=== PATIENT | female | born 1930 | race Caucasian/White ===

== ENCOUNTER 2016-07-18 13:37 | Emergency (ER) | payer MEDICARE, OTHER ==
[~2016-07-18] VITALS: Ht 157.5 cm; Wt 74.9 kg
[~2016-07-18 13:37] MED LIST: ASCO100089 PO; CALC-190 PO; CHOL200047 PO; CRAN1CAP6 PO; DEXT1DRO8 BOTH_EYES; FLUT16SP NS; GLUC1TAB20 PO; LIP40 PO; LOSA100T29 PO; LOSA100T3 PO; MECL12.5 PO; OMEP40CA36 PO; POLY17PO6 PO; PRAM0.252 PO; VITA400C64 PO
[2016-07-18 13:44] VITALS: BP 179/95; PULSE 74; RESP 19; O2SAT 100
[2016-07-18] MEDS ORDERED: ACET-171 PO (13:54)
[2016-07-18] MEDS ORDERED: MULT1CAP33 PO (13:54)
[2016-07-18] MEDS ORDERED: Ondansetron 2 mg/mL 2 mL Inj IV PRN (14:00)
[2016-07-18 14:33] LABS: APPEARANCE,URINE HAZY (CLEAR,HAZY); COLOR,URINE YELLOW (YELLOW); OCCULT BLOOD,URINE TRACE (NEGATIVE); UROBILINOGEN,URINE NORMAL (NORMAL)
--- NOTE | 2016-07-18 14:43 | DRSVH ---
PROCEDURE: X-RAY CHEST ONE VIEW, PORTABLE ([id number]) INDICATIONS: dyspnea TECHNIQUE: One view of the chest was acquired. COMPARISON: None. FINDINGS: Surgical changes and devices: automatic coin machine mechanic leads are seen over the chest. Lungs and pleura: No pleural effusions or pneumothorax. Lungs are clear. Mediastinum: Mediastinal contours appear normal. Heart size is normal. Bones and chest wall: No suspicious bony lesions. Overlying soft tissues appear unremarkable. IMPRESSION: Acute disease is not seen in this semiupright portable chest. Dictated by: Miky Church M.D. on 07/18/2016 at 14:41 Approved by: Miky Church M.D. on 07/18/2016 at 14:42
--- NOTE | 2016-07-18 14:43 | DRSVH ---
PROCEDURE: CT BRAIN WITHOUT CONTRAST ([id number]) INDICATIONS: headache TECHNIQUE: Noncontrast 4.5 mm thick angled axial sections acquired from the foramen magnum to the vertex, with c oronal reformats. COMPARISON: [facility], CT, CT BRAIN WO CON, 01/27/2016, 14:14. FINDINGS: Image quality: Excellent. CSF spaces: Basal cisterns are patent. No extra-axial fluid collections. The ventricles are symmet keila in size and shape. Brain: No intracranial bleeds or masses. There is cerebral volume loss for age, with resultant vent ricular and sulcal prominence. There are periventricular and deep white matter chronic small vessel ischemic changes. There is intracranial internal carotid artery atherosclerosis. Skull and face: Calvarium and visualized facial bones appear intact, without suspicious lesions. Ab normal amount of soft tissue in the posterior right pituitary is unchanged since previous CT scan. Sinuses: Visualized sinuses and mastoids are clear. IMPRESSION: 1. No acute intracranial abnormality. 2. Enlarged pituitary, unchanged in appearance with prominent soft tissue posterior and lateral on th e right side compared to earlier head CT's. Dictated by: Miky Church M.D. on 07/18/2016 at 14:37 Approved by: Miky Church M.D. on 07/18/2016 at 14:41
[2016-07-18 15:03] LABS: BASOPHILS % (AUTO) 0.5 % (0-3); EOSINOPHILS % (AUTO) 1.5 % (0-5); MONOCYTES % (AUTO) 10.8 % (4-12); Mean Corpuscular Volume 86.2 fL (81-100); NEUTROPHILS % (AUTO) 62.6 % (40-74); Platelet Count 247 bil/L (150-400)
--- NOTE | 2016-07-18 15:19 | ED.REPORT ---
HPI-Headache Date of Service Jul 18, 2016 ED Provider: Tyler Gruber MD An 85 year old female with a history of hypertension, GERD, anxiety and skin cancer presents to the ED via EMS complaining of a dizziness than began earlier this afternoon. Associated symptoms include SOB, headache and photophobia. She reports that her headache and dizziness have been constant since onset. Patient recently had a dental infection following a root canal one week ago and has been taking doxycycline. Patient also reports experiencing nausea, headaches, diarrhea and swelling in her neck earlier this week. She denies any chest pain. Nursing Notes Stated Complaint: DIZZINESS Chief Complaint: Headache Nursing Notes Reviewed: Yes Allergies: Coded Allergies: ibandronate sodium (Verified Allergy, Severe, ESOPHAGEAL PAIN, 07/18/16) meperidine (Verified Allergy, Severe, N/V, JHA, TINNITUS, 07/18/16) morphine (Verified Allergy, Severe, vomiting-severe, JHA, 07/18/16) TAPE (Verified Allergy, Mild, Rash,Itching,, 07/18/16) NSAIDS (Non-Steroidal Anti-Inflamma (Verified Adverse Reaction, Intermediate, GERD, 07/18/16) codeine (Verified Adverse Reaction, Intermediate, Upset stomach, 07/18/16) Scheduled Ascorbic Acid (Vitamin C) 1,000 Mg Tab.chew 1,000 MG PO DAILY Atorvastatin (Lipitor) 40 Mg Tablet 40 MG PO HS Calcium Carb&Cit/Mag12/Vit D3 (Calcium 500 mg Tablet) 1 Each Tablet 1 EACH PO DAILY Cholecalciferol (Vitamin D3) (Vitamin D3) 2,000 Unit Capsule 2,000 UNIT PO DAILY Ciprofloxacin (Ciprofloxacin) 500 Mg Tablet 500 MG PO BID Cranberry Conc/Ascorbic Acid (Cranberry Plus Vitamin C Sftgl) 1 Each Capsule 1 EACH PO DAILY Dextran 70/Hypromellose/Pf (Artificial Tears Drops) 1 Each Droperette 1 DROP BOTH_EYES HS Fluticasone Propionate (Fluticasone Propionate Nasal) 16 Gm [place].susp 2 SPRAY NS DAILY Gluc Souza/Chondro Souza A/Vit C/Mn (Glucosamine Chondroitin Tab) 1 Each Tablet 1 EACH PO DAILY Losartan Potassium (Losartan Potassium) 100 Mg Tablet 100 MG PO DAILY Losartan Potassium (Cozaar) 100 Mg Tablet 100 MG PO DAILY Multivitamin (Multivitamins) 1 Each Capsule 1 EACH PO DAILY Omeprazole (Omeprazole) 40 Mg Capsule.dr 40 MG PO DAILY Polyethylene Glycol 3350 (Miralax) 17 Gm Powd.pack 17 GM PO 2Xweekly Pramipexole Dihydrochloride (Mirapex) 0.25 Mg Tablet 0.25 MG PO HS Vitamin E Mixed (Vitamin E) 400 Unit Capsule 400 UNIT PO DAILY Scheduled PRN Acetaminophen (Acetaminophen) 500 Mg Tablet 1,000 MG PO Q6H PRN PRN For Pain Meclizine (Antivert) 12.5 Mg Tablet 12.5 MG PO TID PRN PRN For Dizziness General Time Seen by MD: 15:13 Chief Complaint Other (Dizziness) Hx Obtained From: Patient Arrived By: Ambulance Sudden in Onset?: No Onset Occurred: 1 - 4 hours ago Symptom Duration: Since onset Location: : Generalized Quality: Aching Radiation: : Does not radiate Severity: Current: Mild Severity: Maximum: Moderate Associated with: Reports: Weakness Pertinent Negative: Pt denies other symptoms Recent Healthcare: No recent doctor visit, No recent hospitalization Risk-Headache )( SAH Risk Stratification RF Statements: Risk factors reviewed )( IC Mass Risk Stratification RF Statements: Risk factors reviewed Past Medical History Past Medical History Irregular heartbeat Hemorrhoids Skin cancer Chronic back pain from injury Musculoskeletal trauma Osteoarthritis Anxiety Restless legs syndrome Reports: Cancer, GERD, Hypertension Past Surgical History L radical mastectomy Pituitary gland tumor surgery Partial knee replacement Mar 25, 2014 Esophogeal tumor removal Hernia repair Vericose vein removed Reports: Appendectomy, Cataract surgery, Cholecystectomy, Hysterectomy, Tonsillectomy Smoking History Former Smoker Social History Alcohol Use: Denies alcohol use Drug Use: Denies drug use Other Social History: , Local resident Ambulatory Status Independent Review of Systems Constitutional: Denies: Chills, Fever GI: Reports: Diarrhea, Nausea Neurologic: Reports: Dizziness, Headache, Weakness, Denies: Change LOC Complete sys rev & neg: except as marked. Respiratory: Reports: Shortness of breath Cardiovascular: Denies: Chest pain Physical Exam Initial Vital Signs Vital Signs (First) Date Time Temp Pulse Resp B/P Pulse Ox O2 Delivery O2 Flow Rate FiO2 07/18/16 13:44 36.7 74 19 179/95 100 Room Air Initial VS: Reviewed Extremities: Vascular intact, Neuro intact, No swelling, No tenderness Skin: Warm, Dry, No cyanosis Psychiatric: Mood/affect normal, Behavior normal, Normal thought content General/Constitutional: Awake, Alert Head / Eyes: Atraumatic, Normocephalic, PERRL Neck: Atraumatic, Supple Neurologic: Oriented X3, Speech NL, No motor deficits, No sensory deficits, CN II - XII intact Abdomen: Atraumatic, Soft, Non-tender, No guarding, No rebound Interpretation & Diagnostics Lab Results Interpretation Result Diagram: 07/18/16 1450 07/18/16 1450 Test 07/18/16 14:07 07/18/16 14:50 Urine Color Yellow (YELLOW) Urine Appearance Hazy (CLEAR,HAZY) Urine pH 6.0 (5.0-8.0) Urine Specific [place] 1.025 (1.003-1.035) Urine Protein Tracemg/dL (NEG,TRACE) Urine Glucose (UA) Negativemg/dL (NEGATIVE) Urine Ketones Tracemg/dL (NEGATIVE) Urine Occult Blood Trace (NEGATIVE) Urine Nitrite Negative (NEGATIVE) Urine Bilirubin Negative (NEGATIVE) Urine Urobilinogen Normalmg/dL (NORMAL) Urine Leukocyte Esterase Trace (NEGATIVE) Urine RBC 0-2/hpf (0-2) Urine WBC 6-10/hpf (0-5) Urine Epithelial Cells Moderate/hpf (NONE-MOD) Urine Crystals None seen (NONE SEEN) Urine Bacteria Few/hpf (NONE-FEW) Urine Hyaline Casts 5/20/lpf (NONE) Urine Granular Casts None seen (NONE SEEN) Urine Waxy Casts None seen (NONE SEEN) Urine Red Blood Cell Casts None seen (NONE SEEN) Urine White Blood Cell Casts None seen (NONE SEEN) Urine Mucus Present (None Seen) Urine Trichomonas None seen (NONE SEEN) Urine Yeast None (NONE SEEN) Urinalysis Comment None Urine Culture Reflexed Indicated White Blood Count 4.1th/mm3 (3.8-10.1) Red Blood Count 4.42mil/mm3 (3.90-5.20) Hemoglobin 12.8g/dL (12.0-15.6) Hematocrit 38.1% (35.0-46.0) Mean Corpuscular Volume 86.2fL (81-100) Mean Corpuscular Hemoglobin 29.0pg (27.0-35.0) Mean Corpuscular Hemoglobin Concent 33.6% (32.0-37.0) Red Cell Distribution Width 12.9% (12.3-15.4) Platelet Count 247bil/L (150-400) Neutrophils (%) (Auto) 62.6% (40-74) Lymphocytes (%) (Auto) 24.4% (14-46) Monocytes (%) (Auto) 10.8% (4-12) Eosinophils (%) (Auto) 1.5% (0-5) Basophils (%) (Auto) 0.5% (0-3) Sodium Level 131mEq/L (134-144) Potassium Level 4.2mEq/L (3.5-5.2) Chloride Level 92mEq/L (97-108) Carbon Dioxide Level 24mmol/L (18-29) Blood Urea Nitrogen 14mg/dL (8-27) Creatinine 0.75mg/dL (0.57-1.00) Estimat Glomerular Filtration Rate 106mL/min (>59) Glucose Level 85mg/dL (60-99) Lactic Acid Level 0.8mmol/L (0.4-2.0) Calcium Level 8.9mg/dL (8.5-10.1) Magnesium Level 1.9mg/dL (1.6-2.6) Total Bilirubin 0.5mg/dL (0.0-1.2) Aspartate Amino Transf (AST/SGOT) 31U/L (0-50) Alanine Aminotransferase (ALT/SGPT) 18U/L (0-32) Alkaline Phosphatase 57U/L (25-165) Troponin T < 0.010ug/L (0.0-0.011) Pro-B-Type Natriuretic Peptide 562.8pg/mL (0-738) Total Protein 6.7g/dL (6.4-8.4) Albumin 4.2g/dL (3.4-5.0) ECG Interpretation ECG Interpretation: Sinus Rhythm Rate 75 Prolonged AK interval Incomplete LBBB left ventricular hypertrophy Time: 14:24 Interpreted by: ED physician Normal ECG Interpretation: No change from prior ECGs (10/19) X-Ray Chest Interpretation Chest Xray Interpretation: IMPRESSION: Acute disease is not seen in this semiupright portable chest. Dictated by: Miky Church M.D. on 07/18/2016 at 14:41 Interpretation / Wet Read by: Interpret - Radiologist CT Head Interpretation IMPRESSION: 1. No acute intracranial abnormality. 2. Enlarged pituitary, unchanged in appearance with prominent soft tissue posterior and lateral on the right side compared to earlier head CT's. Dictated by: Miky Church M.D. on 07/18/2016 at 14:37 Study: Head CT no contrast Interpretation / Wet Read by: Interpret - Radiologist Re-Eval/Medical Decision Med Decision/Clinical Course 85-year-old female presenting complaining of dizziness earlier this afternoon which has since resolved. No other associated symptoms. She does report a headache. She has recently had a dental infection which is resolved. She is on doxycycline for this. CT head no acute pathology. Urine positive for UTI. Labs are stable. Vital signs stable. Toradol was given and her headache resolved. Her EKG was unremarkable. I do not see any life-threatening causes for dizziness. She will be treated with ciprofloxacin as she refuses Keflex for her UTI. She is advised to follow-up with her primary doctor tomorrow. Discussed with patient and she agrees with plan to discharge home with outpatient follow-up. Return precautions given. Re-Evaluation/Progress : Time of Eval: 18:07 )( Patient Status: Condition improved Re-Evaluation/Progress Note: Patient is rechecked. Her headache has improved. She is informed of her X-ray results, CT results, EKG results and diagnosis. All of the patient's questions are addressed. She understands and agrees with the treatment plan. Counseled Regarding: Diagnosis, Lab results, Need for follow-up, When/why to return to ED Discharge & Departure Impression: Primary Impression: Urinary tract infection Urinary tract infection type: site unspecified Hematuria presence: without hematuria Qualified Code: N39.0 - Urinary tract infection, site not specified Additional Impression: Dizziness Disposition: Home Discharge Condition All VS Reviewed: Yes Condition: Stable Patient Instructions: Urinary Tract Infection in Women (ED) Additional Instructions: Thank you for trusting us with your care this evening. Your emergency department evaluation today included interview, examination, lab work, EKG, Brain CT and chest X-ray. Your results are reassuring that there is no dangerous cause for concern at this time, however, your lab results did reveal a urinary tract infection. Please take Cipro as prescribed and keep your appointment with Dr. Palma. Please return to the emergency department for any new or worsening conditions including worsening headache, back pain, vomiting, dizziness or chest pain. Referrals: Louie Hall MD (PCP) Joselynibzohaib Attestation Portions of this note were transcribed by Pedro Luis Robles. I, Dr. Gruber personally performed the history, physical exam and medical decision-making; I reviewed and confirmed the accuracy of the information in the transcribed note. Signed by: Verna Villagomez, 07/18/16 1830. copies to: Louie Hall MD, Ben M MD Jul 18, 2016 15:19 PEDRO LUIS ROBLES Jul 18, 2016 15:45
[2016-07-18] MEDS ORDERED: hydrALAZINE 20 mg/mL Inj IV ONE (15:20)
[2016-07-18] MEDS ORDERED: cefTRIAXone Inj 1,000 MG in Dextrose 5% Minibag Plus 50 ML IV ONE (15:20)
[2016-07-18 15:31] LABS: TROPONIN T < 0.010 ug/L (0.0-0.011)
[2016-07-18 15:43] LABS: Magnesium 1.9 mg/dL (1.6-2.6)
[2016-07-18] MEDS ORDERED: Ketorolac 15 mg/mL Inj IVPUSH ONE (16:15)
[2016-07-18 17:14] VITALS: BP 176/106; PULSE 95; RESP 17; O2SAT 96
[2016-07-18] MEDS ORDERED: CIPR-198 PO (18:14)
[2016-07-18 18:40] VITALS: BP 172/76; PULSE 93; RESP 20
== END 2016-07-18 18:40 | disposition home or self-care (01) ==
LOC: EDUNIT# 13:37 → EDBD 13:37 → SED 13:37
DX: N39.0 Urinary tract infection, site not specified (principal); R42 Dizziness and giddiness; R06.02 Shortness of breath; R51 Headache; H53.139 Sudden visual loss, unspecified eye; R11.0 Nausea; R19.7 Diarrhea, unspecified; I10 Essential (primary) hypertension; K21.9 Gastro-esophageal reflux disease without esophagitis; C44.99 Other specified malignant neoplasm of skin, unspecified; F41.9 Anxiety disorder, unspecified; Z87.891 Personal history of nicotine dependence; Z88.5 Allergy status to narcotic agent; Z88.8 Allergy status to other drugs, medicaments and biological substances; Z91.048 Other nonmedicinal substance allergy status
CPT/HCPCS: 36415; 70450; 71010; 80053; 81000; 83605; 83735; 83880; 84484; 85025; 87086; 87088; 93005; 96365; 96375; 99285; G0463; J0360; J0696; J1885; J2405

== ENCOUNTER 2016-09-17 09:59 | Emergency (ER) | payer MEDICARE, OTHER ==
[~2016-09-17] VITALS: Ht 157.5 cm; Wt 70.5 kg
[~2016-09-17 09:59] MED LIST changes: +ACET-171 PO; +CIPR-198 PO; +MULT1CAP33 PO
[2016-09-17 10:21] VITALS: BP 144/82; PULSE 78; RESP 16; O2SAT 98
--- NOTE | 2016-09-17 10:40 | ED.REPORT ---
HPI-General Illness Date of Service Sep 17, 2016 ED Provider: Jolie Voss MD 86 y/o female with a hx of pituitary gland tumor (s/p partial removal) and HTN presents to the ED with multiple complaints, onset 3 days ago. She complains of weakness, worsening headache at the base of her head, abdominal pain, nausea, lack of appetite, diarrhea which seems to be improving, dizziness, SOB, chills and lower extremity swelling. Pt rates her headache as 9/10 and her abdominal pain as 6/10 in severity. She reports she feels like she may fall when she stands up. Pt also complains of chest pain on palpation for about 5 years. For the last four days, her chest pain has gotten worse. She has been using a hot pack for her extremity swelling. Pt denies fever and cough. Nursing Notes Stated Complaint: NAUSEA/WEAKNESS/NECK PAIN Chief Complaint: General Complaint Nursing Notes Reviewed: Yes Allergies: Coded Allergies: ibandronate sodium (Verified Allergy, Severe, ESOPHAGEAL PAIN, 07/18/16) meperidine (Verified Allergy, Severe, N/V, JHA, TINNITUS, 07/18/16) morphine (Verified Allergy, Severe, vomiting-severe, JHA, 07/18/16) TAPE (Verified Allergy, Mild, Rash,Itching,, 07/18/16) NSAIDS (Non-Steroidal Anti-Inflamma (Verified Adverse Reaction, Intermediate, GERD, 07/18/16) codeine (Verified Adverse Reaction, Intermediate, Upset stomach, 07/18/16) Scheduled Ascorbic Acid (Vitamin C) 1,000 Mg Tab.chew 1,000 MG PO DAILY Atorvastatin (Lipitor) 40 Mg Tablet 40 MG PO HS Calcium Carb&Cit/Mag12/Vit D3 (Calcium 500 mg Tablet) 1 Each Tablet 1 EACH PO DAILY Cholecalciferol (Vitamin D3) (Vitamin D3) 2,000 Unit Capsule 2,000 UNIT PO DAILY Ciprofloxacin (Ciprofloxacin) 500 Mg Tablet 500 MG PO BID Cranberry Conc/Ascorbic Acid (Cranberry Plus Vitamin C Sftgl) 1 Each Capsule 1 EACH PO DAILY Dextran 70/Hypromellose/Pf (Artificial Tears Drops) 1 Each Droperette 1 DROP BOTH_EYES HS Fluticasone Propionate (Fluticasone Propionate Nasal) 16 Gm [place].susp 2 SPRAY NS DAILY Gluc Souza/Chondro Souza A/Vit C/Mn (Glucosamine Chondroitin Tab) 1 Each Tablet 1 EACH PO DAILY Losartan Potassium (Losartan Potassium) 100 Mg Tablet 100 MG PO DAILY Losartan Potassium (Cozaar) 100 Mg Tablet 100 MG PO DAILY Multivitamin (Multivitamins) 1 Each Capsule 1 EACH PO DAILY Omeprazole (Omeprazole) 40 Mg Capsule.dr 40 MG PO DAILY Polyethylene Glycol 3350 (Miralax) 17 Gm Powd.pack 17 GM PO 2Xweekly Pramipexole Dihydrochloride (Mirapex) 0.25 Mg Tablet 0.25 MG PO HS Vitamin E Mixed (Vitamin E) 400 Unit Capsule 400 UNIT PO DAILY Scheduled PRN Acetaminophen (Acetaminophen) 500 Mg Tablet 1,000 MG PO Q6H PRN PRN For Pain Meclizine (Antivert) 12.5 Mg Tablet 12.5 MG PO TID PRN PRN For Dizziness General Time Seen by MD: 10:38 Chief Complaint Weakness Hx Obtained From: Patient Arrived By: Walk-in Sudden in Onset?: No Onset Occurred: 3 days ago Symptom Duration: Since onset Location: : Abdomen Quality: Painful Severity: Current: Mild Severity: Maximum: Mild Recent Healthcare: Recent doctor visit Similar Sx Previous: Yes Past Medical History Past Medical History Irregular heartbeat Hemorrhoids Skin cancer Chronic back pain from injury Musculoskeletal trauma Osteoarthritis Anxiety Restless legs syndrome Reports: Cancer, GERD, Hypertension Past Surgical History L radical mastectomy Pituitary gland tumor surgery Partial knee replacement Mar 25, 2014 Esophogeal tumor removal Hernia repair Vericose vein removed Reports: Appendectomy, Cataract surgery, Cholecystectomy, Hysterectomy, Tonsillectomy Smoking History Former Smoker Social History Alcohol Use: Denies alcohol use Drug Use: Denies drug use Other Social History: , Local resident Ambulatory Status Independent Review of Systems Lack of appetite. Full Review of Systems Constitutional: Reports: Chills, Weakness - generalized, Denies: Fever Respiratory: Reports: Shortness of breath, Denies: Non-productive cough Cardiovascular: Reports: Chest pain (on palpation), Edema (Lower extremity swelling) GI: Reports: Abdominal pain, Diarrhea, Nausea, Denies: Vomiting Neurologic: Reports: Dizziness, Headache, Syncope Complete sys rev & neg: except as marked. Physical Exam Vital Signs Vital Signs Date Time Temp Pulse Resp B/P Pulse Ox O2 Delivery O2 Flow Rate FiO2 09/17/16 15:37 78 17 148/68 98 Room Air 09/17/16 12:41 37 70 20 175/76 99 Room Air 09/17/16 10:21 35.8 78 16 144/82 98 Room Air Initial VS: Reviewed, Vital signs normal Respiratory: Breath sounds normal, Clear to auscultation, No respiratory distress Abdomen / GI: Soft, Non-tender, No guarding, No rebound, No distention Skin: Warm, Dry, No cyanosis Neurologic: Alert, Oriented, Nonfocal Psychiatric: Mood/affect normal, Behavior normal, Normal thought content General/Constitutional: Awake, Alert, Cooperative, Not toxic appearing Head / Eyes: No photophobia Neck: Atraumatic, Supple, Full range of motion Tenderness at the base of the head as it meets the neck. Cardiovascular: Heart rate NL, Regular rhythm, Heart sounds NL, No gallop, No murmurs Trace edema to lower extremities bilaterally. Interpretation & Diagnostics Lab Results Interpretation Result Diagram: 09/17/16 1115 09/17/16 1115 Test 09/17/16 11:15 09/17/16 14:25 White Blood Count 4.2th/mm3 (3.8-10.1) Red Blood Count 4.58mil/mm3 (3.90-5.20) Hemoglobin 13.2g/dL (12.0-15.6) Hematocrit 40.3% (35.0-46.0) Mean Corpuscular Volume 88.0fL (81-100) Mean Corpuscular Hemoglobin 28.8pg (27.0-35.0) Mean Corpuscular Hemoglobin Concent 32.8% (32.0-37.0) Red Cell Distribution Width 12.9% (12.3-15.4) Platelet Count 225bil/L (150-400) Neutrophils (%) (Auto) 59.7% (40-74) Lymphocytes (%) (Auto) 25.8% (14-46) Monocytes (%) (Auto) 12.1% (4-12) Eosinophils (%) (Auto) 1.7% (0-5) Basophils (%) (Auto) 0.7% (0-3) Prothrombin Time 10.7sec (8.1-12.5) Prothromb Time International Ratio 1.00ratio Sodium Level 136mEq/L (134-144) Potassium Level 3.7mEq/L (3.5-5.2) Chloride Level 97mEq/L (97-108) Carbon Dioxide Level 23mmol/L (18-29) Blood Urea Nitrogen 14mg/dL (8-27) Creatinine 0.85mg/dL (0.57-1.00) Estimat Glomerular Filtration Rate 91mL/min (>59) Glucose Level 91mg/dL (60-99) Calcium Level 9.7mg/dL (8.5-10.1) Magnesium Level 2.1mg/dL (1.6-2.6) Total Bilirubin 0.5mg/dL (0.0-1.2) Aspartate Amino Transf (AST/SGOT) 28U/L (0-50) Alanine Aminotransferase (ALT/SGPT) 19U/L (0-32) Alkaline Phosphatase 58U/L (25-165) Troponin T 0.010ug/L (0.0-0.011) Pro-B-Type Natriuretic Peptide 309.8pg/mL (0-738) Total Protein 7.3g/dL (6.4-8.4) Albumin 4.4g/dL (3.4-5.0) Lipase 26U/L (13-60) Thyroid Stimulating Hormone (TSH) 2.310uIU/mL (0.450-4.500) Hold [place] Top Tube Received (Received) Urine Color Yellow (YELLOW) Urine Appearance Hazy (CLEAR,HAZY) Urine pH 7.0 (5.0-8.0) Urine Specific [place] 1.005 (1.003-1.035) Urine Protein Negativemg/dL (NEG,TRACE) Urine Glucose (UA) Negativemg/dL (NEGATIVE) Urine Ketones Negativemg/dL (NEGATIVE) Urine Occult Blood Large (NEGATIVE) Urine Nitrite Negative (NEGATIVE) Urine Bilirubin Negative (NEGATIVE) Urine Urobilinogen Normalmg/dL (NORMAL) Urine Leukocyte Esterase Negative (NEGATIVE) Urine RBC 0-2/hpf (0-2) Urine WBC 0-5/hpf (0-5) Urine Epithelial Cells Occasional/hpf (NONE-MOD) Urine Crystals None seen (NONE SEEN) Urine Bacteria None/hpf (NONE-FEW) Urine Hyaline Casts None/lpf (NONE) Urine Granular Casts None seen (NONE SEEN) Urine Waxy Casts None seen (NONE SEEN) Urine Red Blood Cell Casts None seen (NONE SEEN) Urine White Blood Cell Casts None seen (NONE SEEN) Urine Mucus None seen (None Seen) Urine Trichomonas None seen (NONE SEEN) Urine Yeast None (NONE SEEN) Urinalysis Comment None Urine Culture Reflexed Not indicated ECG Interpretation ECG Interpretation: Sinus rhythm with 1st degree AV block. Rate 64. No acute ST or QT changes IVCD No change from prior ECG dated 07/18/16 Time: 11:09 Interpreted by: ED physician X-Ray Chest Interpretation Chest Xray Interpretation: IMPRESSION: Cardiomegaly without overt failure. No definite pneumonia is evident. Dictated by: Lewis Hugo M.D. on 09/17/2016 at 10:36 Approved by: Lewis Hugo M.D. on 09/17/2016 at 10:37 View: Portable, 1 view Interpretation / Wet Read by: Interpret - Radiologist CT Head Interpretation IMPRESSION: No acute intracranial abnormality. Dictated by: Vikas Dill M.D. on 09/17/2016 at 11:48 Approved by: Vikas Dill M.D. on 09/17/2016 at 11:49 Study: Head CT no contrast Interpretation / Wet Read by: Interpret - Radiologist Re-Eval/Medical Decision Med Decision/Clinical Course The patient has multiple complaints that could be infectious. She is evaluated for pneumonia, acute coronary syndrome, urinary tract infection, dehydration, electrode abnormality. Other differential diagnoses considered were meningitis , intracranial hemorrhage, viral syndrome. The patient admits to not eating or drinking well which could contribute to her weakness. No source of infection was found and her cardiac workup was negative. The patient was feeling improved after some IV hydration after eating. On exam the patient's pain was right at the base of the skull as it meets the neck and it was tender to palpation. She does not have signs of meningismus and I do not think this is intracranial hemorrhage. Source of Hx: Old records Time of Eval: 14:55 Patient Status: Condition improved Re-Evaluation/Progress Note: Rechecked pt. Discussed lab and imaging results and diagnosis. Informed the pt of the plan to discharge. Pt understands and agrees with plan. F/U instructions and RTER warning given. All questions addressed. Counseled Regarding: Diagnosis, Lab results, Need for follow-up, When/why to return to ED Discharge & Departure Primary Impression: Generalized weakness Disposition: Home Discharge Condition All VS Reviewed: Yes Additional Instructions: Your labs and CT scan came back normal. You may have a low level infection that is resolving. You don't have pneumonia or heart attack. Eat and drink regularly. Follow up with your doctor for an MRI. Return to the emergency department in case of fever, difficulty breathing, worsening nausea or any other new or concerning symptoms. Referrals: Louie Hall MD (PCP) Scribe Attestation Portions of this note were transcribed by Gucci Castle and Tereza Lewis. I, , personally performed the history, physical exam and medical decision-making;I reviewed and confirmed the accuracy of the information in the transcribed note. Signed by Gucci Castle and Tereza Lewis, Verna. 09/17/16 15:22. copies to: Louie Hall MD, Jena M MD Sep 17, 2016 10:40 Gucci Castle Sep 17, 2016 10:55
[2016-09-17] MEDS ORDERED: 0.9% Sodium Chloride 500 ML IV ONE ×2 (10:55→13:10)
[2016-09-17] MEDS ORDERED: Ondansetron 2 mg/mL 2 mL Inj IVPUSH ONE (10:55)
[2016-09-17] MEDS ORDERED: Pantoprazole 4 mg/mL 10 mL Inj IVPUSH ONE (10:55)
[2016-09-17 11:31] LABS: BASOPHILS % (AUTO) 0.7 % (0-3); EOSINOPHILS % (AUTO) 1.7 % (0-5); MONOCYTES % (AUTO) 12.1 % (4-12); Mean Corpuscular Hemoglobin 28.8 pg (27.0-35.0); NEUTROPHILS % (AUTO) 59.7 % (40-74); Platelet Count 225 bil/L (150-400)
--- NOTE | 2016-09-17 11:38 | DRSVH ---
PROCEDURE: X-RAY CHEST ONE VIEW, PORTABLE ([id number]) INDICATIONS: chest pain TECHNIQUE: One view of the chest was acquired. COMPARISON: [facility], CR, XR CHEST 1VW (PORTABLE), 07/18/2016, 14:16. FINDINGS: Surgical changes and devices: None. Lungs and pleura: There are low lung volumes. Portable technique results in difficulty evaluating th e lung bases. There is eventration and mild elevation of the right diaphragm. No definite consolida tion, large effusion, or pneumothorax is evident. Mediastinum: Mediastinal contours appear normal. The heart appears enlarged. There is aortic ather osclerosis. Bones and chest wall: No suspicious bony lesions. The bone mineralization is decreased. Overlying soft tissues appear unremarkable. IMPRESSION: Cardiomegaly without overt failure. No definite pneumonia is evident. Dictated by: Lewis Hugo M.D. on 09/17/2016 at 10:36 Approved by: Lewis Hugo M.D. on 09/17/2016 at 10:37
--- NOTE | 2016-09-17 11:51 | DRSVH ---
PROCEDURE: CT BRAIN WITHOUT CONTRAST ([id number]) INDICATIONS: history of tumor TECHNIQUE: Noncontrast 4.5 mm thick angled axial sections acquired from the foramen magnum to the vertex, with c oronal reformats. COMPARISON: [facility], CT, CT BRAIN WO CON, 07/18/2016, 14:12. [facility], CT, CT BRAIN WO CON, 01/27/2016, 14:14. [facility], CT, CT BRAIN WO CON, 10/20/2015, 22:34 . [facility], CT, BRAIN W/O CONTRAST, 11/22/2013, 15:25. FINDINGS: Image quality: Excellent. CSF spaces: Basal cisterns are patent. No extra-axial fluid collections. The ventricles are symmet keila in size and shape. Brain: No intracranial bleeds or masses. There is cerebral volume loss for age, with resultant vent ricular and sulcal prominence. There are periventricular and deep white matter chronic small vessel ischemic changes. There is intracranial internal carotid artery atherosclerosis. Skull and face: Calvarium and visualized facial bones appear intact, without suspicious lesions. Sinuses: Visualized sinuses and mastoids are clear. IMPRESSION: No acute intracranial abnormality. Dictated by: Vikas Dill M.D. on 09/17/2016 at 11:48 Approved by: Vikas Dill M.D. on 09/17/2016 at 11:49
[2016-09-17 12:02] LABS: TROPONIN T 0.01 ug/L (0.0-0.011)
[2016-09-17 12:16] LABS: Magnesium 2.1 mg/dL (1.6-2.6)
[2016-09-17 12:41] VITALS: BP 175/76; PULSE 70; RESP 20; O2SAT 99
[2016-09-17 14:50] LABS: APPEARANCE,URINE HAZY (CLEAR,HAZY); COLOR,URINE YELLOW (YELLOW); OCCULT BLOOD,URINE LARGE (NEGATIVE); UROBILINOGEN,URINE NORMAL (NORMAL)
[2016-09-17 15:37] VITALS: BP 148/68; PULSE 78; RESP 17; O2SAT 98
== END 2016-09-17 15:38 | disposition home or self-care (01) ==
LOC: SED 09:59
DX: R53.1 Weakness (principal); R06.02 Shortness of breath; R11.0 Nausea; I10 Essential (primary) hypertension; K21.9 Gastro-esophageal reflux disease without esophagitis; Z87.891 Personal history of nicotine dependence; Z88.5 Allergy status to narcotic agent; Z88.8 Allergy status to other drugs, medicaments and biological substances; Z91.048 Other nonmedicinal substance allergy status
CPT/HCPCS: 36415; 70450; 71010; 80053; 81000; 83690; 83735; 83880; 84443; 84484; 85025; 85610; 93005; 96361; 96374; 96375; 99285; J2405; J7040

== ENCOUNTER 2016-12-31 13:19 | Observation (INO) | payer MEDICARE, OTHER ==
[~2016-12-31] VITALS: Ht 160 cm; Wt 72.7 kg
[2016-12-31 13:30] VITALS: BP 177/95; PULSE 109; RESP 16; O2SAT 97
--- NOTE | 2016-12-31 13:32 | ED.REPORT ---
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 Her pain radiates to her L arm and L jaw. Associated symptoms include weakness, SOB, and nausea. She denies diaphoresis, vomiting, or any other symptoms. Patient is FULL CODE. Nursing Notes Stated Complaint: CHEST PAIN Chief Complaint: Chest Pain Nursing Notes Reviewed: Yes Allergies: Coded Allergies: ibandronate sodium (Verified Allergy, Severe, ESOPHAGEAL PAIN, 07/18/16) meperidine (Verified Allergy, Severe, N/V, JHA, TINNITUS, 07/18/16) morphine (Verified Allergy, Severe, vomiting-severe, JHA, 07/18/16) TAPE (Verified Allergy, Mild, Rash,Itching,, 07/18/16) NSAIDS (Non-Steroidal Anti-Inflamma (Verified Adverse Reaction, Intermediate, GERD, 07/18/16) codeine (Verified Adverse Reaction, Intermediate, Upset stomach, 07/18/16) Scheduled Ascorbic Acid (Vitamin C) 1,000 Mg Tab.chew 1,000 MG PO DAILY Atorvastatin (Lipitor) 40 Mg Tablet 40 MG PO HS Calcium Carb&Cit/Mag12/Vit D3 (Calcium 500 mg Tablet) 1 Each Tablet 1 EACH PO DAILY Cholecalciferol (Vitamin D3) (Vitamin D3) 2,000 Unit Capsule 2,000 UNIT PO DAILY Ciprofloxacin (Ciprofloxacin) 500 Mg Tablet 500 MG PO BID Cranberry Conc/Ascorbic Acid (Cranberry Plus Vitamin C Sftgl) 1 Each Capsule 1 EACH PO DAILY Dextran 70/Hypromellose/Pf (Artificial Tears Drops) 1 Each Droperette 1 DROP BOTH_EYES HS Fluticasone Propionate (Fluticasone Propionate Nasal) 16 Gm [place].susp 2 SPRAY NS DAILY Gluc Souza/Chondro Souza A/Vit C/Mn (Glucosamine Chondroitin Tab) 1 Each Tablet 1 EACH PO DAILY Losartan Potassium (Losartan Potassium) 100 Mg Tablet 100 MG PO DAILY Losartan Potassium (Cozaar) 100 Mg Tablet 100 MG PO DAILY Multivitamin (Multivitamins) 1 Each Capsule 1 EACH PO DAILY Omeprazole (Omeprazole) 40 Mg Capsule.dr 40 MG PO DAILY Polyethylene Glycol 3350 (Miralax) 17 Gm Powd.pack 17 GM PO 2Xweekly Pramipexole Dihydrochloride (Mirapex) 0.25 Mg Tablet 0.25 MG PO HS Vitamin E Mixed (Vitamin E) 400 Unit Capsule 400 UNIT PO DAILY Scheduled PRN Acetaminophen (Acetaminophen) 500 Mg Tablet 1,000 MG PO Q6H PRN PRN For Pain Meclizine (Antivert) 12.5 Mg Tablet 12.5 MG PO TID PRN PRN For Dizziness General Time Seen by MD: 13:29 Chief Complaint Chest pain Hx Obtained From: Patient Arrived By: Walk-in Sudden in Onset?: Yes Onset Occurred: 16 - 30 minutes ago Symptom Duration: Since onset Risk Factors )( CAD Risk Stratification HypertensionNo Diabetes mellitus, No Hyperlipidemia, No Known CAD, No Smoking Risk factors reviewed )( TAD Risk Stratification HypertensionNo Risk factors reviewed )( PE Risk Stratification Previous DVTNo , No Risk factors reviewed Past Medical History Past Medical History Irregular heartbeat Hemorrhoids Skin cancer Chronic back pain from injury Musculoskeletal trauma Osteoarthritis Anxiety Restless legs syndrome DVT pituitary adenoma UTI's Reports: Cancer, GERD, Hypertension Past Surgical History L radical mastectomy Pituitary gland tumor surgery Partial knee replacement Mar 25, 2014 Esophogeal tumor removal Hernia repair Vericose vein removed Reports: Appendectomy, Cataract surgery, Cholecystectomy, Hysterectomy, Tonsillectomy Smoking History Former Smoker Social History Alcohol Use: Denies alcohol use Drug Use: Denies drug use Other Social History: , Local resident Ambulatory Status Independent Review of Systems Review of Systems Note: +jaw pain Respiratory: Reports: Shortness of breath Cardiovascular: Reports: Chest pain GI: Reports: Nausea, Denies: Vomiting Musculoskeletal: Reports: Extremity pain Skin: Denies Diaphoresis Neurologic: Reports: Weakness Complete sys rev & neg: except as marked. Physical Exam Initial Vital Signs Vital Signs (First) Date Time Temp Pulse Resp B/P Pulse Ox O2 Delivery O2 Flow Rate FiO2 12/31/16 13:30 36.7 109 16 177/95 97 Room Air Initial VS: Reviewed Head / Eyes: Atraumatic, Normocephalic Neck: Full range of motion Skin: Warm, Dry Neurologic: Alert, Oriented, Nonfocal Psychiatric: Mood/affect normal, Behavior normal, Normal thought content General/Constitutional: Awake, Alert Distress / Hydration: Positive: Distress moderate Respiratory / Chest: Atraumatic, Breath sounds NL, Breath sounds = bilat, No respiratory distress Cardiovascular: Heart rate NL, Regular rhythm, Heart sounds NL Abdomen: Atraumatic, Soft, Non-tender Lower Extremity / Pelvis / MS: Atraumatic Trace edema Interpretation & Diagnostics CT angiography chest IMPRESSION: 1. No evidence of pulmonary embolism. 2. Enlargement of the pulmonary arteries suggesting pulmonary arterial hypertension. 3. Mildly enlarged mediastinal lymph nodes are nonspecific and may be reactive. Dictated by: Ash Lambert M.D. on 12/31/2016 at 15:16 Lab Results Interpretation Result Diagram: 12/31/16 1335 12/31/16 1335 Test 12/31/16 13:35 White Blood Count 5.5th/mm3 (3.8-10.1) Red Blood Count 4.31mil/mm3 (3.90-5.20) Hemoglobin 12.5g/dL (12.0-15.6) Hematocrit 38.4% (35.0-46.0) Mean Corpuscular Volume 89.1fL (81-100) Mean Corpuscular Hemoglobin 29.0pg (27.0-35.0) Mean Corpuscular Hemoglobin Concent 32.6% (32.0-37.0) Red Cell Distribution Width 13.4% (12.3-15.4) Platelet Count 235bil/L (150-400) Neutrophils (%) (Auto) 58.5% (40-74) Lymphocytes (%) (Auto) 31.0% (14-46) Monocytes (%) (Auto) 8.2% (4-12) Eosinophils (%) (Auto) 1.6% (0-5) Basophils (%) (Auto) 0.5% (0-3) Prothrombin Time 10.2sec (8.1-12.5) Prothromb Time International Ratio 0.95ratio Activated Partial Thromboplast Time 26.9sec (22.8-33.0) D-Dimer 1.29mg/L FEU (<0.50) Sodium Level 139mEq/L (134-144) Potassium Level 3.8mEq/L (3.5-5.2) Chloride Level 101mEq/L (97-108) Carbon Dioxide Level 25mmol/L (18-29) Blood Urea Nitrogen 20mg/dL (8-27) Creatinine 0.78mg/dL (0.57-1.00) Estimat Glomerular Filtration Rate 101mL/min (>59) Glucose Level 88mg/dL (60-99) Calcium Level 9.2mg/dL (8.5-10.1) Magnesium Level 1.9mg/dL (1.6-2.6) Total Bilirubin 0.4mg/dL (0.0-1.2) Aspartate Amino Transf (AST/SGOT) 28U/L (0-50) Alanine Aminotransferase (ALT/SGPT) 17U/L (0-32) Alkaline Phosphatase 57U/L (25-165) Troponin T < 0.010ug/L (0.0-0.011) Pro-B-Type Natriuretic Peptide 692.8pg/mL (0-738) Total Protein 7.1g/dL (6.4-8.4) Albumin 4.3g/dL (3.4-5.0) Hold Kincaid Top Tube Received (Received) ECG Interpretation ECG Interpretation: sinus rhythm rate 81 incomplete LBBB LVH Unchanged when compared with 08/2016 Time: 13:28 Interpreted by: ED physician X-Ray Chest Interpretation Chest Xray Interpretation: IMPRESSION: Trace right basilar opacity. It is nonspecific. This could represent a nodule, small focus of air space disease, atelectasis or edema. Short interval imaging followup in 3 months is recommended. Dictated by: Eladia Seth M.D. on 12/31/2016 at 12:43 Approved by: Eladia Seth M.D. on 12/31/2016 at 12:48 View: Portable, 1 view Interpretation / Wet Read by: Interpret - Radiologist Re-Eval/Medical Decision Med Decision/Clinical Course 86-year-old female with a history of hypertension, hyperlipidemia, and GERD who presents with sudden onset chest pain rated at a 10 out of 10 that radiates to the left arm and jaw. It is accompanied by shortness of breath and nausea. Her symptoms started approximately 30 minutes prior to arrival and were present when she arrived. She improved with 2 doses of nitroglycerin sublingual. Her initial troponin and other lab work were normal. Her vitals are normal. Her EKG was negative for acute ST changes. Given her symptoms, the nature of her pain, and her history, she needs to be admitted for acute coronary syndrome rule out. PE was ruled out. Discussed with hospitalist who will be happy to see her and admit her. Patient is agreeable as well. Time of Eval: 15:30 Re-Evaluation/Progress Note: Chest pain has resolved after nitroglycerin. Patient is agreeable to admit Consultation : Referral / Consult Name: Carlos Chapa MD Sock Drier: Will see patient, Agrees with eval, Agrees with plan Discharge & Departure Primary Impression: Chest pain Chest pain type: precordial pain Qualified Code: R07.2 - Precordial pain Disposition: ADMITTED TO HOSPITAL Discharge Condition All VS Reviewed: Yes Condition: Stable Referrals: Louie Hall MD Attestation Portions of this note were transcribed by Steve Cook. I, Dr. Aragon personally performed the history, physical exam and medical decision-making; I reviewed and confirmed the accuracy of the information in the transcribed note. Signed by: Verna Moore, 12/31/16 copies to: Louie Hall MD, Gary R DO Dec 31, 2016 13:31 STEVE COOK Dec 31, 2016 13:38
[2016-12-31] MEDS ORDERED: Ondansetron 2 mg/mL 2 mL Inj IVPUSH ONE (13:35)
--- NOTE | 2016-12-31 13:50 | DRSVH ---
PROCEDURE: X-RAY CHEST ONE VIEW, PORTABLE ([id number]) INDICATIONS: chest pain TECHNIQUE: One view of the chest was acquired. COMPARISON: [facility], [place], XR CHEST 1VW (PORTABLE), 09/17/2016, 11:12. FINDINGS: Surgical changes and devices: None. Lungs and pleura: No pleural effusions or pneumothorax. Trace opacity is present in the right base. Mediastinum: Mediastinal contours appear normal. Heart size is normal. Bones and chest wall: No suspicious bony lesions. Overlying soft tissues appear unremarkable. IMPRESSION: Trace right basilar opacity. It is nonspecific. This could represent a nodule, small fo cus of air space disease, atelectasis or edema. Short interval imaging followup in 3 months is recom mended. Dictated by: Eladia Seth M.D. on 12/31/2016 at 12:43 Approved by: Eladia Seth M.D. on 12/31/2016 at 12:48
[2016-12-31 13:58] LABS: BASOPHILS % (AUTO) 0.5 % (0-3); EOSINOPHILS % (AUTO) 1.6 % (0-5); MONOCYTES % (AUTO) 8.2 % (4-12); Mean Corpuscular Volume 89.1 fL (81-100); NEUTROPHILS % (AUTO) 58.5 % (40-74); Platelet Count 235 bil/L (150-400)
[2016-12-31 14:16] LABS: D-Dimer 1.29 mg/L FEU (<0.50); INR 0.95 ratio
[2016-12-31 14:17] VITALS: BP 139/87; PULSE 74; RESP 19; O2SAT 98
[2016-12-31 14:24] LABS: TROPONIN T < 0.010 ug/L (0.0-0.011)
[2016-12-31 14:31] LABS: Magnesium 1.9 mg/dL (1.6-2.6)
--- NOTE | 2016-12-31 15:40 | DRSVH ---
PROCEDURE: CT ANGIO CHEST PULMONARY EMBOLISM ([id number]) INDICATIONS: chest pain, sob TECHNIQUE: After the administration of intravenous contrast, 2 mm thick sections acquired from the pulmonary api matthieu to the posterior costophrenic angles. 3-dimensional maximum intensity projection (MIP) coronal a nd sagittal reformats were then acquired through the thorax. For radiation dose reduction, the follo wing was used: automated exposure control, adjustment of mA and/or kV according to patient size. COMPARISON: [facility], CT, CHEST ANGIO-PE, 11/22/2013, 19:57. FINDINGS: Image quality: There is streak artifact associated with the patient injected contrast. Pulmonary arteries: Pulmonary arteries demonstrate no intraluminal filling defects to suggest centra l pulmonary embolism. There is enlargement of the pulmonary artery, within main pulmonary artery tarun sures up to 3 cm suggesting pulmonary arterial hypertension. Lungs and pleura: There is mild dependent atelectasis bilaterally. No pleural effusions or pneumotho rax. Central and peripheral airways are patent. Mediastinum: Heart size is at the upper limits of normal, with the trace pericardial effusion. Thor acic aorta is normal in caliber and enhancement. There are a few mildly enlarged mediastinal lymph n odes including azygoesophageal lymph nodes measuring up to 1.3 cm in short axis. Esophagus is normal in caliber, with a small hiatal hernia. Bones and chest wall: No suspicious bony lesions. Ribs and thoracic spine appear intact throughout. Thyroid gland is partially visualized, with evaluation limited due to streak artifact. No axillary or supraclavicular adenopathy. Abdomen: Visualized upper abdomen demonstrate surgical absence of the gallbladder. There is colonic diverticulosis noted. IMPRESSION: 1. No evidence of pulmonary embolism. 2. Enlargement of the pulmonary arteries suggesting pulmonary arterial hypertension. 3. Mildly enlarged mediastinal lymph nodes are nonspecific and may be reactive. Dictated by: Ash Lambert M.D. on 12/31/2016 at 15:16 Approved by: Ash Lambert M.D. on 12/31/2016 at 15:39
[2016-12-31] MEDS ORDERED: LORA10CA9 PO (17:10)
[2016-12-31] MEDS ORDERED: BISM-95 PO (17:10)
[2016-12-31] MEDS ORDERED: Atropine 1 mg/10 mL (Code) Syringe IVPUSH PRN (17:55)
[2016-12-31] MEDS ORDERED: Ondansetron 2 mg/mL 2 mL Inj IVPUSH PRN (17:55)
[2016-12-31] MEDS ORDERED: Polyethylene Glycol (PEG) 17 Gm Powder PO PRN (17:55)
[2016-12-31] MEDS ORDERED: Senna-Docusate 8.6-50 mg Tablet PO PRN (17:55)
[2016-12-31] MEDS ORDERED: Alum-Mag Hydrox-Simeth 30 mL Suspension PO PRN (17:55)
[2016-12-31] MEDS: 0.9% Sodium Chloride 1,000 ML IV SCH (18:15)
[2016-12-31 18:44] VITALS: BP 163/77; PULSE 76; RESP 18; O2SAT 98
[2016-12-31] MEDS: Heparin 5,000 Unit/mL Inj SUBQ SCH ×2 (20:15→23:11)
--- NOTE | 2016-12-31 20:18 | PCM.HPMED ---
Subjective Date of Service Dec 31, 2016 Primary Provider: Admitting Physician: Carlos Chapa MD Primary Care Physician: Louie Hall MD Attending Physician: Carlos Chapa MD Chief Complaint: Chest pain. History of Present Illness: Ms. Shirlene Meyers is a very pleasant 86 year old lady with a past medical history of multiple cancers with surgical interventions including; pituitary, throat, esophageus, and skin, hypertension on no medications, prior DVT, Gerd who presents to the [facility] Emergency Department with sudden onset chest pain while shopping at [place] with her daughter. She reports while shopping around noon she developed sharp progressive substernal chest pain that rapidly worsened and radiated to her chin, jaw on the left side, and left axilla. She then noted a distinct weakness and conversion to and abrupt chest pressure that did not subside. She did not have a place to sit, so instead they made their way to the ED. She reports other associated symptoms including: mild nausea, chills, and weakness. She denies syncope, dizziness, fever, diaphoresis , vomiting, shortness of breath, abdominal pain, diarrhea. She lives with her at home, and has very good social support. She does not require ambulatory assistance. FULL CODE. In the ED patients vitals: T - 36.7, HR - 109, RR - 16, BP - 177/95, 97 % RA. Notable labs: All wnl, aside from d-dimer 1.29. CT ANGIO CHEST PULMONARY EMBOLISM IMPRESSION: 1. No evidence of pulmonary embolism. 2. Enlargement of the pulmonary arteries suggesting pulmonary arterial hypertension. 3. Mildly enlarged mediastinal lymph nodes are nonspecific and may be reactive. Patient received SL nitro, ASA, and IV fluids. Review of Systems: A comprehensive review of systems was conducted with the patient and found to be negative except as above in the History of Present Illness. Allergies Coded Allergies: ibandronate sodium (Verified Allergy, Severe, ESOPHAGEAL PAIN, 12/31/16) meperidine (Verified Allergy, Severe, N/V, JHA, TINNITUS, 12/31/16) morphine (Verified Allergy, Severe, vomiting-severe, JHA, 12/31/16) TAPE (Verified Allergy, Mild, Rash,Itching,, 12/31/16) NSAIDS (Non-Steroidal Anti-Inflamma (Verified Adverse Reaction, Intermediate, GERD, 12/31/16) codeine (Verified Adverse Reaction, Intermediate, Upset stomach, 12/31/16) Home Medications Scheduled Ascorbic Acid (Vitamin C) 1,000 Mg Tab.chew 1,000 MG PO DAILY Atorvastatin (Lipitor) 40 Mg Tablet 40 MG PO HS Calcium Carb&Cit/Mag12/Vit D3 (Calcium 500 mg Tablet) 1 Each Tablet 1 EACH PO DAILY Cholecalciferol (Vitamin D3) (Vitamin D3) 2,000 Unit Capsule 2,000 UNIT PO DAILY Ciprofloxacin (Ciprofloxacin) 500 Mg Tablet 500 MG PO BID Cranberry Conc/Ascorbic Acid (Cranberry Plus Vitamin C Sftgl) 1 Each Capsule 1 EACH PO DAILY Dextran 70/Hypromellose/Pf (Artificial Tears Drops) 1 Each Droperette 1 DROP BOTH_EYES HS Fluticasone Propionate (Fluticasone Propionate Nasal) 16 Gm [place].susp 2 SPRAY NS DAILY Gluc Souza/Chondro Souza A/Vit C/Mn (Glucosamine Chondroitin Tab) 1 Each Tablet 1 EACH PO DAILY Losartan Potassium (Losartan Potassium) 100 Mg Tablet 100 MG PO DAILY Multivitamin (Multivitamins) 1 Each Capsule 1 EACH PO DAILY Omeprazole (Omeprazole) 40 Mg Capsule.dr 40 MG PO DAILY Polyethylene Glycol 3350 (Miralax) 17 Gm Powd.pack 17 GM PO 2Xweekly Pramipexole Dihydrochloride (Mirapex) 0.25 Mg Tablet 0.25 MG PO HS Vitamin E Mixed (Vitamin E) 400 Unit Capsule 400 UNIT PO DAILY Scheduled PRN Acetaminophen (Acetaminophen) 500 Mg Tablet 1,000 MG PO Q6H PRN PRN For Pain Meclizine (Antivert) 12.5 Mg Tablet 12.5 MG PO TID PRN PRN For Dizziness PMH Irregular heartbeat Hemorrhoids Skin cancer Chronic back pain from injury Musculoskeletal trauma Osteoarthritis Anxiety Restless legs syndrome DVT pituitary adenoma UTI's Multiple Cancers - Skin, throat cancer, pituitary mass. GERD Hypertension Surgical History L radical mastectomy. Pituitary gland tumor surgery. Partial knee replacement Mar 25, 2014. Esophogeal tumor removal. Hernia repair. Vericose vein removed. Appendectomy. Cataract surgery. Cholecystectomy. Hysterectomy. Tonsillectomy. Family History Mother Heart disease. Father Heart disease. Social History Hx Alcohol Use: No Hx Substance Use: No Hx Tobacco Use: No Smoking Status: Former Smoker Exam Vital Signs Vital Sign - Last Date Time Temp Pulse Resp B/P Pulse Ox O2 Delivery O2 Flow Rate FiO2 12/31/16 17:23 36.7 78 16 162/84 98 Room Air Exam General: Elderly lady lying in bed in no acute distress, well-developed, well- nourished, appropriately interactive HEENT: Normocephalic, atraumatic. External ears without defect. Pupils equal, round, and reactive to light and accommodation. Anicteric sclerae, moist conjunctivae, and no lid lag. Oropharynx free of erythema and cobble stoning with moist mucosa. Neck: Supple with full range of motion. No jugular venous distension. No bruits. No lymphadenopathy or thyromegaly. Cardiovascular: Regular rate and rhythm with no murmurs, rubs, or gallops appreciated Pulmonary: Clear to auscultation bilaterally with no crackles, wheezes, or rhonchi. Normal respiratory effort with no use of accessory muscles. Abdomen: Bowel tones present. Soft, nontender, nondistended. No hepatosplenomegaly or masses appreciated. Extremities: No clubbing, cyanosis, edema, or lymphadenopathy appreciated. Skin: Normal temperature, turgor, and texture; no rash, ulcers, or subcutaneous nodules appreciated. Neurological: Cranial nerves grossly intact. Normal muscle strength, tone, and bulk. Reflexes, coordination, and sensory function within normal limits. No known gait impairment. Psychiatric: Normal mood and affect. Alert and oriented to person, place, and time. Lab and Diagnostics Result Diagram: 12/31/16 1335 12/31/16 1335 X-Rays, CTs and MRIs CT ANGIO CHEST PULMONARY EMBOLISM IMPRESSION: 1. No evidence of pulmonary embolism. 2. Enlargement of the pulmonary arteries suggesting pulmonary arterial hypertension. 3. Mildly enlarged mediastinal lymph nodes are nonspecific and may be reactive. Approved by: Ash Lambert M.D. on 12/31/2016 at 15:39 Assessment & Plan Ms. Shirlene Meyers is a very pleasant 86 year old lady with a past medical history of multiple cancers with surgical interventions including; pituitary, throat, esophageus, and skin, hypertension on no medications, prior DVT, Gerd who presents to the [facility] Emergency Department with sudden onset chest pain while shopping at [place] with her daughter. She is admitted under observation status for chest pain rule out, so far negative, awaiting stress test tomorrow. Chest pain, present on admission. Active. - Received SL nitro and ASA with resolution of symptoms. - Tropes x 2 0.010, repeat 1 more. - EKG reviewed, Normal sinus Rhythm, LBBB - [place] criteria ST >1mm with + QRS (5), ST dep >1mm V1-V3 (3), ST >5mm (2) = score of 0. if >or =3 likely [place]. - Stress test in the AM. NPO after midnight. - IV fluids NS @ 70 ml/hour for 1 L. Hypertension, present on admission. Active. - Reports not on home medications, however she was on Losartan 100 mg daily at one point. - Lisinopril 2.5 one time. GERD - Holding home omeprazole for now. Acetaminophen for mild pain when necessary. Bowel regimen Senna and MiraLAX scheduled and PRN. Zofran when necessary for nausea and vomiting. SubQ heparin for now. SCDs in place. High-risk medications: IV Morphine PRN. Social:She lives with her at home, and has very good social support. She does not require ambulatory assistance. General: No acute distress, well- developed, well-nourished, appropriately interactive Patient Status: Patient is admitted under observation status with expected length of stay less than 2 midnights due to severity of presenting symptoms. Pain Evaluation: Adequate Pain Control Resuscitation Status: CPR: Attempt Resuscitation SCOTTY LUIS DO Dec 31, 2016 18:26
[2016-12-31 22:13] VITALS: BP 163/84; PULSE 74; RESP 17; O2SAT 96
[2016-12-31] MEDS: Sodium Chloride LOK Flush 10 mL Syringe IVFLUSH SCH (23:09)
[2017-01-01] VITALS (8 sets, daily range): BP systolic 156–191; BP diastolic 75–93; PULSE 64–78; RESP 16–18; O2SAT 96–99
[2017-01-01 06:12] LABS: APPEARANCE,URINE CLEAR (CLEAR,HAZY); COLOR,URINE YELLOW (YELLOW); OCCULT BLOOD,URINE NEGATIVE (NEGATIVE); PH,URINE 5.5 (5.0-8.0); UROBILINOGEN,URINE NORMAL (NORMAL)
[2017-01-01] MEDS: Heparin 5,000 Unit/mL Inj SUBQ SCH ×2 (08:30→16:30)
[2017-01-01] MEDS: Sodium Chloride LOK Flush 10 mL Syringe IVFLUSH SCH ×2 (08:30→17:09)
[2017-01-01] MEDS: 0.9% Sodium Chloride 1,000 ML IV SCH (12:05)
--- NOTE | 2017-01-01 14:07 | DRSVH ---
PROCEDURE: EITHER REST OR STRESS ONLY Pharmacological stress myocardial perfusion SPECT with gated imaging and ejection fraction. RADIOPHARMACEUTICAL: 21.6 mCi of Tc-99m tetrafosmin intravenously at peak pharmacologic stress. INDICATIONS: Chest pain. TECHNIQUE: Radiopharmaceutical was injected at peak stress test. SPECT images were obtained. SPECT myocardial perfusion images were displayed in short axis, horizontal long axis, and vertical long ax is views. Gated images were reviewed using [employer] software. COMPARISON: [facility], [place], MYOCARD PERF SPECT SINGLE, 06/05/2013, 12:01. CARDIAC STRESS: A pharmacologic stress test was performed under the supervision of an attending staff, using an infus ion of lexiscan 0.4mg IVx1. Hemodynamic data: There is normal blood pressure and heart rate response to pharmacologic stress. Symptoms: The patient denied anginal chest pain during drug infusion. Aminophylline: 100mg IV. EKG: Sinus rhythm at rest with non-specific ST changes in anterolaterals. Mild non diagnostic ST de pressions in the anterolaterals leads with lexiscan. No ectopy. FINDINGS: Raw data: There is good tracer uptake by the myocardium. No significant motion artifacts. Left ventricular function: Gated images demonstrate normal left ventricle wall thickening. No segme ntal wall motion abnormalities. Left ventricle end-diastolic volume is 51 mL. Left ventricle stress ejection fraction is 92%; normal values are above 45%. Myocardial perfusion: There is normal distribution of activity in the left and right ventricular [place] cardium. No perfusion defects. IMPRESSION: Low risk pharmaceutical nuclear study. 1) Normal perfusion at stress making infarction and ischemia unlikely. Rest images not done. 2) Normal left ventricular size and function. 3) No angina or angina equivalent symptoms. 4) ECG changes non-diagnostic. 5) Compared to nuclear study 06/05/2013, no significant changes. Dictated by: Mil Smith M.D. on 01/01/2017 at 13:53 Approved by: Mil Smith M.D. on 01/01/2017 at 14:05
[2017-01-01] MEDS ORDERED: Sucralfate 1,000 mg Tablet PO ONE (17:20)
[2017-01-01] MEDS ORDERED: Labetalol 5 mg/mL 20 mL Inj IVPUSH PRN (21:40)
[2017-01-02] VITALS (7 sets, daily range): BP systolic 152–177; BP diastolic 78–99; PULSE 64–77; RESP 16–20; O2SAT 96–98
[2017-01-02] MEDS: Heparin 5,000 Unit/mL Inj SUBQ SCH ×3 (00:30→16:30)
[2017-01-02] MEDS: Sodium Chloride LOK Flush 10 mL Syringe IVFLUSH SCH ×3 (04:01→16:52)
[2017-01-02] MEDS: Pantoprazole 40 mg ER24 Tablet PO SCH ×2 (08:30→16:52)
[2017-01-02 08:57] LABS: BASOPHILS % (AUTO) 0.8 % (0-3); MONOCYTES % (AUTO) 12.9 % (4-12); Mean Corpuscular Hemoglobin 29.6 pg (27.0-35.0); Mean Corpuscular Volume 87.3 fL (81-100); NEUTROPHILS % (AUTO) 59.1 % (40-74); Platelet Count 215 bil/L (150-400)
--- NOTE | 2017-01-02 11:14 | PCM.PNMED ---
Subjective Date of Service Jan 02, 2017 Subjective Patient seen and examined today. She is not feeling good as she has diarrhea after miralax. She also complains of nausea. Bp elevated, at home normal as per her. Exam Vital Signs Vital Sign - Last Date Time Temp Pulse Resp B/P Pulse Ox O2 Delivery O2 Flow Rate FiO2 01/02/17 08:56 36.4 75 20 177/84 98 Room Air Intake and Output 01/01/17 01/01/17 01/02/17 Cumulative From/Thru 15:00 23:00 07:00 12/31/16 13:30 - 01/02/17 06:48 Intake Total 1325 ml 100 ml 2355 ml Output Total 1050 ml 1600 ml 3570 ml Balance 275 ml -1500 ml -1215 ml Intake Oral 1325 ml 100 ml 1525 ml IV Total 830 ml Output Urine Total 1050 ml 300 ml 2270 ml Urine/Stool Mix 1300 ml 1300 ml # Bowel Movements 0 4 4 Exam General: Elderly lady lying in bed in no acute distress, well-developed, well- nourished, appropriately interactive Cardiovascular: Regular rate and rhythm with no murmurs, rubs, or gallops appreciated Pulmonary: Clear to auscultation bilaterally with no crackles, wheezes, or rhonchi. Normal respiratory effort with no use of accessory muscles. Abdomen: Bowel tones present. Soft, nontender, nondistended. No hepatosplenomegaly or masses appreciated. Extremities: No clubbing, cyanosis, edema, or lymphadenopathy appreciated. Skin: Normal temperature, turgor, and texture; no rash, ulcers, or subcutaneous nodules appreciated. Psychiatric: In mild distress Lab and Diagnostics Result Diagram: 01/02/17 0815 01/02/17 0815 X-Rays, CTs and MRIs CT ANGIO CHEST PULMONARY EMBOLISM IMPRESSION: 1. No evidence of pulmonary embolism. 2. Enlargement of the pulmonary arteries suggesting pulmonary arterial hypertension. 3. Mildly enlarged mediastinal lymph nodes are nonspecific and may be reactive. Approved by: Ash Lambert M.D. on 12/31/2016 at 15:39 Additional Diagnostics Stress test IMPRESSION: Low risk pharmaceutical nuclear study. 1) Normal perfusion at stress making infarction and ischemia unlikely. Rest images not done. 2) Normal left ventricular size and function. 3) No angina or angina equivalent symptoms. 4) ECG changes non-diagnostic. 5) Compared to nuclear study 06/05/2013, no significant changes. Assessment & Plan Ms. Shirlene Meyers is a very pleasant 86 year old lady with a past medical history of multiple cancers with surgical interventions including; pituitary, throat, esophageus, and skin, hypertension on no medications, prior DVT, Gerd who presents to the [facility] Emergency Department with sudden onset chest pain while shopping at [place] with her daughter. She is admitted under observation status for chest pain rule out, so far negative, awaiting stress test tomorrow. Chest pain, present on admission. Active. -Stress test normal - CTPE negative for any acute pathologies - likely secondary to GERD - on PPI, sucralafate as needed - will monitor Hypertension, present on admission. Active. - Reports not on home medications, however she was on Losartan 100 mg daily at one point. - restarted on ACEi , will titrate up as needed Nausea - as per her, she may be feeling it because of all the procedures she had - zofran prn - lytes to be replaced as needed. GERD - continue ppi and sucralafate Acetaminophen for mild pain when necessary. Bowel regimen Senna and MiraLAX scheduled and PRN. Zofran when necessary for nausea and vomiting. SubQ heparin for now. SCDs in place. High-risk medications: IV Morphine PRN. Social:She lives with her at home, and has very good social support. She does not require ambulatory assistance. General: No acute distress, well- developed, well-nourished, appropriately interactive Patient Status: Patient is admitted under observation status with expected length of stay less than 2 midnights due to severity of presenting symptoms. VTE Mechanical Devices: Intermittant Pneumatic CD, Venous Foot Pump Resuscitation Status: CPR: Attempt Resuscitation Time spent 35 mins Carlos Chapa MD Jan 02, 2017 11:14
[2017-01-02] MEDS ORDERED: Sucralfate 1,000 mg Tablet PO PRN (15:15)
[2017-01-03] MEDS: Sodium Chloride LOK Flush 10 mL Syringe IVFLUSH SCH ×2 (00:58→08:26)
[2017-01-03] MEDS: Heparin 5,000 Unit/mL Inj SUBQ SCH ×2 (00:59→08:30)
[2017-01-03 05:34] VITALS: BP 125/67; PULSE 62; RESP 18; O2SAT 97
[2017-01-03 05:42] LABS: BASOPHILS % (AUTO) 0.7 % (0-3); EOSINOPHILS % (AUTO) 4.8 % (0-5); MONOCYTES % (AUTO) 13.7 % (4-12); Mean Corpuscular Hemoglobin 29.2 pg (27.0-35.0); Mean Corpuscular Volume 87.2 fL (81-100); NEUTROPHILS % (AUTO) 48.2 % (40-74); Platelet Count 201 bil/L (150-400)
[2017-01-03] MEDS: Pantoprazole 40 mg ER24 Tablet PO SCH (08:26)
--- NOTE | 2017-01-03 10:10 | PCM.DIMED ---
Discharge Instructions Date of Service Jan 03, 2017 Dates of Hospitalization Dec 31, 2016 at 16:58 Discharge Diagnosis Discharge Diagnosis GERD Chest pain Diet Discharge Diet: Heart Healthy Activity Discharge Activity: No restrictions Call your provider Call your provider for: Fever or Chills, Chest pain, Vomitting, Excessive diarrhea Patient Instructions Follow-up Provider: Louie Hall MD Follow-up with PCP in: 1 week Carlos Chapa MD Jan 03, 2017 10:10
[2017-01-03] MEDS ORDERED: LISI-571 PO (10:14)
[2017-01-03] MEDS ORDERED: SUCR1ORA2 PO (10:14)
--- NOTE | 2017-01-03 10:15 | PCM.DC.MED ---
Discharge Summary Date of Service Jan 03, 2017 Dates of Hospitalization Date of Hospital Admission Dec 31, 2016 at 16:58 Date of Discharge: Jan 03, 2017 Providers: Admitting Physician: Alanna Logan MD Primary Care Physician: Louie Hall MD Attending Physician: Alanna Logan MD Diagnosis at Time of Discharge Diagnosis at Time of Discharge GERD Chest pain Procedures XRay, CTs & MRIs CT ANGIO CHEST PULMONARY EMBOLISM IMPRESSION: 1. No evidence of pulmonary embolism. 2. Enlargement of the pulmonary arteries suggesting pulmonary arterial hypertension. 3. Mildly enlarged mediastinal lymph nodes are nonspecific and may be reactive. Approved by: Ash Lambert M.D. on 12/31/2016 at 15:39 Other Diagnostics Stress test IMPRESSION: Low risk pharmaceutical nuclear study. 1) Normal perfusion at stress making infarction and ischemia unlikely. Rest images not done. 2) Normal left ventricular size and function. 3) No angina or angina equivalent symptoms. 4) ECG changes non-diagnostic. 5) Compared to nuclear study 06/05/2013, no significant changes. Brief History Ms. Shirlene Meyers is a very pleasant 86 year old lady with a past medical history of multiple cancers with surgical interventions including; pituitary, throat, esophageus, and skin, hypertension on no medications, prior DVT, Gerd who presents to the [facility] Emergency Department with sudden onset chest pain while shopping at [employer] with her daughter. She reports while shopping around noon she developed sharp progressive substernal chest pain that rapidly worsened and radiated to her chin, jaw on the left side, and left axilla. She then noted a distinct weakness and conversion to and abrupt chest pressure that did not subside. She did not have a place to sit, so instead they made their way to the ED. She reports other associated symptoms including: mild nausea, chills, and weakness. She denies syncope, dizziness, fever, diaphoresis , vomiting, shortness of breath, abdominal pain, diarrhea. She lives with her at home, and has very good social support. She does not require ambulatory assistance. FULL CODE. In the ED patients vitals: T - 36.7, HR - 109, RR - 16, BP - 177/95, 97 % RA. Notable labs: All wnl, aside from d-dimer 1.29. CT ANGIO CHEST PULMONARY EMBOLISM IMPRESSION: 1. No evidence of pulmonary embolism. 2. Enlargement of the pulmonary arteries suggesting pulmonary arterial hypertension. 3. Mildly enlarged mediastinal lymph nodes are nonspecific and may be reactive. Patient received SL nitro, ASA, and IV fluids. Hospital Course Ms. Shirlene Meyers is a very pleasant 86 year old lady with a past medical history of multiple cancers with surgical interventions including; pituitary, throat, esophageus, and skin, hypertension on no medications, prior DVT, Gerd who presents to the [facility] Emergency Department with sudden onset chest pain while shopping at [employer] with her daughter. She is admitted under observation status for chest pain rule out, so far negative, awaiting stress test tomorrow. Chest pain, present on admission. Active. -Stress test normal - CTPE negative for any acute pathologies - likely secondary to GERD - on PPI, sucralafate as needed Hypertension, present on admission. Active. - Reports not on home medications, however she was on Losartan 100 mg daily at one point. - restarted on ACEi - follow up outpatient Nausea - as per her, she may be feeling it because of all the procedures she had - zofran prn - lytes to be replaced as needed. GERD - continue ppi and sucralafate Exam Vital Signs (Last) Date Time Temp Pulse Resp B/P Pulse Ox O2 Delivery O2 Flow Rate FiO2 01/03/17 05:34 36.7 62 18 125/67 97 Room Air Test 12/31/16 13:35 12/31/16 18:35 01/01/17 02:00 01/01/17 05:30 Prothrombin Time 10.2sec (8.1-12.5) Prothromb Time International Ratio 0.95ratio Activated Partial Thromboplast Time 26.9sec (22.8-33.0) D-Dimer 1.29mg/L FEU (<0.50) Magnesium Level 1.9mg/dL (1.6-2.6) Total Bilirubin 0.4mg/dL (0.0-1.2) Aspartate Amino Transf (AST/SGOT) 28U/L (0-50) Alanine Aminotransferase (ALT/SGPT) 17U/L (0-32) Alkaline Phosphatase 57U/L (25-165) Pro-B-Type Natriuretic Peptide 692.8pg/mL (0-738) Total Protein 7.1g/dL (6.4-8.4) Albumin 4.3g/dL (3.4-5.0) Hold Kincaid Top Tube Received (Received) Triglycerides Level 148mg/dL (0-149) Cholesterol Level 208mg/dL (100-199) LDL Cholesterol, Calculated 131.400mg/dL (0-99) VLDL Cholesterol 29.600mg/dL HDL Cholesterol 47mg/dL (>39) Cholesterol/HDL Ratio 4.43 (0.0-4.4) Troponin T 0.010ug/L (0.0-0.011) Urine Color Yellow (YELLOW) Urine Appearance Clear (CLEAR,HAZY) Urine pH 5.5 (5.0-8.0) Urine Specific [place] 1.010 (1.003-1.035) Urine Protein Negativemg/dL (NEG,TRACE) Urine Glucose (UA) Negativemg/dL (NEGATIVE) Urine Ketones Negativemg/dL (NEGATIVE) Urine Occult Blood Negative (NEGATIVE) Urine Nitrite Negative (NEGATIVE) Urine Bilirubin Negative (NEGATIVE) Urine Urobilinogen Normalmg/dL (NORMAL) Urine Leukocyte Esterase Trace (NEGATIVE) Urine RBC 0-2/hpf (0-2) Urine WBC 0-5/hpf (0-5) Urine Epithelial Cells Occasional/hpf (NONE-MOD) Urine Crystals None seen (NONE SEEN) Urine Bacteria None/hpf (NONE-FEW) Urine Hyaline Casts None/lpf (NONE) Urine Granular Casts None seen (NONE SEEN) Urine Waxy Casts None seen (NONE SEEN) Urine Red Blood Cell Casts None seen (NONE SEEN) Urine White Blood Cell Casts None seen (NONE SEEN) Urine Mucus None seen (None Seen) Urine Trichomonas None seen (NONE SEEN) Urine Yeast None (NONE SEEN) Urinalysis Comment None Hold Urine Received (Received) Test 01/03/17 05:10 White Blood Count 4.5th/mm3 (3.8-10.1) Red Blood Count 4.14mil/mm3 (3.90-5.20) Hemoglobin 12.1g/dL (12.0-15.6) Hematocrit 36.1% (35.0-46.0) Mean Corpuscular Volume 87.2fL (81-100) Mean Corpuscular Hemoglobin 29.2pg (27.0-35.0) Mean Corpuscular Hemoglobin Concent 33.5% (32.0-37.0) Red Cell Distribution Width 12.9% (12.3-15.4) Platelet Count 201bil/L (150-400) Neutrophils (%) (Auto) 48.2% (40-74) Lymphocytes (%) (Auto) 32.6% (14-46) Monocytes (%) (Auto) 13.7% (4-12) Eosinophils (%) (Auto) 4.8% (0-5) Basophils (%) (Auto) 0.7% (0-3) Sodium Level 136mEq/L (134-144) Potassium Level 4.2mEq/L (3.5-5.2) Chloride Level 100mEq/L (97-108) Carbon Dioxide Level 24mmol/L (18-29) Blood Urea Nitrogen 16mg/dL (8-27) Creatinine 0.83mg/dL (0.57-1.00) Estimat Glomerular Filtration Rate 94mL/min (>59) Glucose Level 87mg/dL (60-99) Calcium Level 8.6mg/dL (8.5-10.1) Discharge Medications Discharge Medications Cranberry Conc/Ascorbic Acid (Cranberry Plus Vitamin C Sftgl) 1 Each Capsule 1 EACH PO DAILY (Reported) Dextran 70/Hypromellose/Pf (Artificial Tears Drops) 1 Each Droperette 1 DROP BOTH_EYES HS (Reported) Fluticasone Propionate (Fluticasone Propionate Nasal) 16 Gm [place].susp 2 SPRAY NS HS (Reported) Lisinopril (Lisinopril) 5 Mg Tablet 10 MG PO DAILY Prescribed by: ALANNA LOGAN MD Loratadine (Loratadine) 10 Mg Capsule 10 MG PO QAM (Reported) Multivitamin (Multivitamins) 1 Each Capsule 1 EACH PO DAILY (Reported) Omeprazole (Omeprazole) 40 Mg Capsule.dr 40 MG PO QAM (Reported) Pramipexole Dihydrochloride (Mirapex) 0.25 Mg Tablet 0.25 MG PO HS (Reported) As needed Acetaminophen (Acetaminophen) 500 Mg Tablet 1,000 MG PO Q6H PRN PRN For Pain ( Reported) Polyethylene Glycol 3350 (Miralax) 17 Gm Powd.pack 17 GM PO 2Xweekly PRN PRN For Constipation (Reported) Sucralfate Susp (Carafate Susp) 1 Gm/10 Ml Oral.susp 1 GM PO QID PRN PRN For Epigastric Distress Prescribed by: ALANNA LOGAN MD Followup Plan Discharge Diet: Heart Healthy Discharge Activity: No restrictions Follow-up Provider: Louie Hall MD Follow-up with PCP in: 1 week Time spent 35 mins Alanna Logan MD Jan 03, 2017 10:15
== END 2017-01-03 13:54 | disposition home or self-care (01) ==
LOC: SED 13:19 → MPC 16:58
PROVIDERS: ADMIT Internal Medicine; ATTEND Internal Medicine
DX: R07.9 Chest pain, unspecified (principal); I10 Essential (primary) hypertension; K21.9 Gastro-esophageal reflux disease without esophagitis; R11.0 Nausea; I49.9 Cardiac arrhythmia, unspecified; F41.9 Anxiety disorder, unspecified; G25.81 Restless legs syndrome; M19.90 Unspecified osteoarthritis, unspecified site; Z85.89 Personal history of malignant neoplasm of other organs and systems; Z86.718 Personal history of other venous thrombosis and embolism; Z87.891 Personal history of nicotine dependence
CPT/HCPCS: 36415; 71010; 71275; 78451; 80048; 80053; 80061; 81001; 83735; 83880; 84484; 85025; 85378; 85610; 85730; 93005; 93017; 94799; 96374; 96376; 99285; G0378; J1644; J2405; J7030; Q9967